=== PATIENT | female | born 1940 | race Caucasian/White ===

== ENCOUNTER 2018-02-23 11:41 | Observation (INO) | payer MEDICARE ==
[2018-02-23 13:04] LABS: Troponin I Less than 0.010 ng/mL (< 0.028)
[2018-02-23] MEDS ORDERED: Acetaminophen 325 MG TAB PO PRN ×2 (13:50→13:56)
[2018-02-23 13:53] VITALS: BMI 27.1
[2018-02-23] MEDS ORDERED: Mag-Al 1200 mg/1200 mg/30 ML UDCUP PO PRN (13:56)
[2018-02-23] MEDS ORDERED: Sodium Chloride 0.65% Nasal 44 ML BOT EA NARE PRN (13:56)
[2018-02-23] MEDS ORDERED: Ondansetron ODT 4 MG TAB PO PRN (13:56)
[2018-02-23] MEDS ORDERED: Milk Of Magnesia 30 ML UDCUP PO PRN (13:56)
[2018-02-23] MEDS ORDERED: Zolpidem Tartrate 5 MG TAB PO PRN (13:56)
[2018-02-23] MEDS ORDERED: hydrALAZINE 20 MG/ML VIAL SLOW IVP PRN (13:56)
[2018-02-23] MEDS ORDERED: Diabetic Tussin 200 MG/10 ML UDCUP PO PRN (13:56)
[2018-02-23] MEDS ORDERED: Ondansetron HCl/PF 4 MG/2 ML Vial IVP PRN (13:56)
[2018-02-23] MEDS ORDERED: Eucerin (Mineral Oil/Petrolatum,White) 30 gm Jar TOP PRN (13:56)
[2018-02-23] MEDS ORDERED: HYDROcodone/Acetaminophen 5/325 mg Tablet PO PRN (13:56)
[2018-02-23] MEDS ORDERED: Loratadine 10 MG TAB PO PRN (13:56)
[2018-02-23] MEDS ORDERED: Artificial Tears 18 DROP/0.9 ML EA EYE PRN (13:56)
[2018-02-23] MEDS ORDERED: Chloraseptic Spray 180 ml Bottle PO PRN (13:56)
[2018-02-23] MEDS ORDERED: Loperamide HCl 2 MG CAP PO PRN (13:56)
[2018-02-23] MEDS ORDERED: Nitroglycerin 0.4 MG TAB (25 Tab Bottle) PO PRN (13:56)
[2018-02-23] MEDS ORDERED: Senokot 8.6 MG TAB PO PRN (13:56)
[2018-02-23] MEDS ORDERED: Albuterol Sulfate 2.5 mg/3 ml Neb NEB PRN (13:58)
[2018-02-23] MEDS ORDERED: Ketorolac Tromethamine 30 MG/ML VIAL IVP PRN (13:58)
[2018-02-23] MEDS ORDERED: Aspirin 325 MG TAB PO SCH (14:00)
--- NOTE | 2018-02-23 14:17 | HP ---
PRIMARY CARE PHYSICIAN: Dr. Jayme Price. REASON FOR ADMISSION: Transfer from [facility] for rule out acute coronary syndrome. HISTORY OF PRESENT ILLNESS: A 77-year-old female, who has underlying history of gastroesophageal ref lux disease and mild intermittent asthma, who went to [facility] Room for evaluati on of chest pain. The patient reports that chest pain started last night, which was left-sided in location, radiated to underarm on the left side. She describes pressure-like and fullness, tightness in nature, 6/10 in i ntensity. The patient's pain was constant. It was not intermittent. There was no specific aggravat ing or relieving factor. She did not have any associated fever, diaphoresis, nausea, vomiting, or sh ortness of breath. She did not have any associated cough or upper respiratory symptoms. She denies any vomiting. There was no relation of chest pain with food, respiration, or activity. Patient's pa in was persistent entire night and this morning, and that is why she decided to go to local emergency room where she had a negative troponin, negative D-dimer, normal blood count. EKG was also unremark able. Chest x-ray reported as mild patchy interstitial opacity. She did not have any upper respirat ory or lower respiratory symptoms. She had negative cardiac enzymes. She was sent to ER in our hospital for further evaluation. Patient reports that she had last stress test done in 2013, which was normal. PAST MEDICAL HISTORY: Mild persistent asthma, gastroesophageal reflux disease, history of costochond ritis. PAST SURGICAL HISTORY: Appendicectomy, total abdominal hysterectomy, partial colon resection for col on abscess, cholecystectomy, and oophorectomy. PAST PSYCHIATRIC HISTORY: Reviewed and negative. ALLERGIES: No known drug allergy. CURRENT HOME MEDICATIONS: Advair inhalation 2 times daily, Zantac 150 mg twice daily, Zanaflex 2 mg as needed, magnesium one tablet 3 times daily. ALLERGIES: No known drug allergy. SOCIAL HISTORY: Patient lives by herself. No history of tobacco, alcohol, or illicit drug abuse. FAMILY HISTORY: Mother had heart disease. Brother had stroke. REVIEW OF SYSTEMS: The following complete review of systems was negative, unless otherwise mentioned in the HPI or below: Constitutional: Weight loss or gain, ability to conduct usual activities. Sk in: Rash, itching. Eyes: Double vision, pain. ENT/Mouth: Nose bleeding, neck stiffness, pain, te nderness. Cardiovascular: Palpitations, dyspnea on exertion, orthopnea. Respiratory: Shortness of breath, wheezing, cough, hemoptysis, fever, or night sweats. Gastrointestinal: Poor appetite, abdo trevin pain, heartburn, nausea, vomiting, constipation, or diarrhea. Genitourinary: Urgency, frequen cy, dysuria, nocturia. Musculoskeletal: Pain, swelling. Neurologic/Psychiatric: Anxiety, depressi on. Allergy/Immunologic: Skin rash, bleeding tendency. Please see my HPI for pertinent positive an d negative. All other review of systems reviewed and negative except as mentioned in the HPI. EMERGENCY ROOM COURSE: Patient is given aspirin, nitroglycerin sublingual, and nitro patch that did not significantly improve her pain. PHYSICAL EXAMINATION: VITAL SIGNS: On arrival, blood pressure 140/68, pulse 69, respiratory rate 16, temperature 98.8, sat uration 94% on room air, weight 65.7 kilograms. GENERAL: The patient is currently alert, awake, in no obvious acute distress. HEENT: Normocephalic, atraumatic. Eyes: Pupils round, reactive to light. Extraocular muscle intac t. ENT: Oropharynx within normal limits. Moist mucous membranes. No oral lesion, no pharyngeal er ythema, no exudate. NECK: Supple, no JVD, no thyromegaly, no carotid bruit, no jugular venous distention. LUNGS: Clear to auscultation without any rhonchi or rales. CARDIAC: S1 and S2 regular. No murmur, no gallop, no rub. ABDOMEN: Soft, bowel sounds present, nontender, nondistended. No organomegaly, no mass, no suprapub ic tenderness. BACK EXAMINATION: Unremarkable, no CVA tenderness. EXTREMITIES: Upper extremities, passive movement of all joints are normal. Lower extremities, no ed judith. Good peripheral pulsation, no calf tenderness. SKIN: No skin rash. HEMATOLOGICAL SYSTEM: No lymphadenopathy. PSYCHIATRIC: Normal affect. NEUROLOGIC: Nonfocal examination. SIGNIFICANT LABORATORY DATA: EKG showing normal sinus rhythm, nonspecific ST-T changes. Chest x-ray reported as mild patchy and interstitial opacity. CBC: WBC 5.7, hemoglobin 13.4, platelets 234. D -dimer 0.37. BMP: Sodium 141, potassium 4.2, chloride 107, carbon dioxide 23, anion gap 15, BUN 15, creatinine 0.72, glucose 102, calcium 9.7. LFT: AST 17, ALT 16, alkaline phosphatase 50, albumin 4 .1, lipase 13. Cardiac enzymes negative x2. CK 53. ASSESSMENT AND PLAN: 1. Chest pain. Patient's chest pain is left-sided. Her description of chest pain is most likely no nanginal and noncardiac. Her EKG showing nonspecific ST-T changes. Cardiac enzymes negative. Based on risk factor profile, patient has [id number] coronary artery disease possibility. The patie nt will need further evaluation with stress testing to rule out underlying ischemia. We will check l ipid profile tomorrow for risk stratification. Her D-dimer is negative, and the patient's descriptio n is also not consistent with thromboembolic disorder and we have excluded that possibility. Most li kalpesh, her pain can be explained by costochondritis. In that case, she will need Toradol on a p.r.n. basis, which we will give her while in hospital. We will also continue with Pepcid 20 mg p.o. b.i.d. , but her description is not consistent with acid reflux as well. Her chest x-ray showing patchy and interstitial opacity, but clinical history is not consistent with the finding and that is why we myron l repeat chest x-ray PA and lateral tomorrow morning. 2. Asthma, mild, persistent. Patient will continue Advair inhalation twice daily and Ventolin nebul ization p.r.n. basis. 3. Gastroesophageal reflux disease. We will continue Pepcid 20 mg p.o. b.i.d. 4. Deep venous thrombosis prophylaxis not needed, because we are expecting discharge in 24 hours. 5. Gastrointestinal prophylaxis, Pepcid 20 mg p.o. b.i.d. 6. Code status: The patient is FULL CODE. Patient does not have any surrogate decision maker. Disposition plan based on stress test result, likely within 24 hours. Plan of care discussed with sarita e patient in detail.
[2018-02-23] MEDS: tiZANidine HCl 4 MG TAB PO PRN (15:02)
[2018-02-23 16:04] LABS: Troponin I Less than 0.010 ng/mL (< 0.028)
[2018-02-23] MEDS ORDERED: Magnesium Oxide 400 MG TAB PO SCH (18:15)
[2018-02-23 19:27] LABS: Troponin I 0.011 ng/mL (< 0.028)
[2018-02-23] MEDS: Mometasone/Formoterol 120 PUFF INHALER INH SCH (19:42)
[2018-02-23] MEDS: Famotidine 20 MG TAB PO SCH (19:52)
[2018-02-24 04:54] LABS: Cardiac Risk 4.9 (Less than 4.5)
[2018-02-24] MEDS: Mometasone/Formoterol 120 PUFF INHALER INH SCH (06:52)
[2018-02-24] MEDS ORDERED: Aspirin 325 MG TAB PO SCH (09:00)
[2018-02-24] MEDS: Famotidine 20 MG TAB PO SCH (11:59)
[2018-02-24] MEDS: Magnesium Oxide 400 MG TAB PO SCH ×2 (12:00→14:19)
[2018-02-24] MEDS: tiZANidine HCl 4 MG TAB PO PRN (12:05)
[2018-02-24 12:08] VITALS: BP 123/70; TEMP 97.6
--- NOTE | 2018-02-24 12:55 | NM ---
CARDIAC SPECT: HISTORY: A 77-year-old female with chest pain. TECHNIQUE: A myocardial perfusion scan is performed using the single-isotope 1-day protocol with Technetium 99m sestamibi. Ten mCi were injected intravenously for the rest exam followed by 29 mCi for the stress s tudy. Exercise stress was monitored and interpreted by Dr. Titus. FINDINGS: There is homogeneous tracer distribution in the myocardial segments on stress and rest images without fixed or reversible defects. GATED SPECT LVEF: 81%. WALL MOTION EXAM: Normal. IMPRESSION: Normal myocardial perfusion scan. POS: [facility]
--- NOTE | 2018-02-24 19:01 | DIS ---
DATE OF ADMISSION: 02/23/2018 DATE OF DISCHARGE: 02/24/2018 PRIMARY CARE PHYSICIAN: Dr. Jayme Price. DISCHARGE DISPOSITION: Home. PRIMARY DISCHARGE DIAGNOSES: 1. Chest pain, ruled out acute coronary syndrome. 2. Dyslipidemia. SECONDARY DISCHARGE DIAGNOSES: Chronic kidney disease stage 2, gastroesophageal reflux disease, mild intermittent asthma. PRIMARY PROCEDURE/OPERATION: None. RADIOLOGICAL INVESTIGATION: Stress test negative. SIGNIFICANT LABORATORY: Triglyceride of 206, LDL 138. Cardiac enzymes negative x3. DISCHARGE MEDICATIONS: Ecotrin 81 mg p.o. daily, Lipitor 10 mg p.o. at bedtime, Advair inhalation b. i.d., magnesium 200 mg p.o. t.i.d., Zanaflex 2 mg t.i.d. p.r.n., Zantac 150 mg p.o. b.i.d. CONTRAINDICATIONS: None. CODE STATUS: FULL CODE. INPATIENT CONSULTANTS: None. ALLERGIES: No known drug allergy. DISCHARGE PLAN: Post hospital, the patient will follow up with primary care physician in 1 week. HOSPITAL COURSE: A 77-year-old female who was admitted by me for chest pain. Please see my HPI for further details. The patient's chest pain description was predominantly consistent with costochondri tis. Based on her request, we did a stress test and serial cardiac enzymes, all workup came back neg ative. The patient has elevated LDL and that is why we are starting Lipitor on her. The patient was given h ealthy lifestyle measure discussion. The patient is seen and examined at bedside today. Plan of car e discussed with the family member. Currently, patient's vital signs stable. Her examination is com pletely normal. All new medication prescriptions sent to her pharmacy. The patient is medically sta ble for discharge today.
--- NOTE | 2018-02-28 11:46 | EKG ---
Test Reason : Blood Pressure : / mmHG Vent. Rate : 066 BPM Atrial Rate : 066 BPM P-R Int : 152 ms QRS Dur : 078 ms QT Int : 422 ms P-R-T Axes : 057 015 041 degrees QTc Int : 442 ms Normal sinus rhythm Nonspecific ST and T wave abnormality Abnormal ECG Confirmed by WYATT MURPHY, WENDY ([id number]), editor in chief newspaper NANY MILLER ([id number]) on 02/28/2018 11:46:26 AM Referred By: Confirmed By:WENDY SCHNEIDER MD
== END 2018-02-24 15:57 | disposition home or self-care (01) ==
LOC: ERS 11:41 → 2SW 12:57
PROVIDERS: ADMIT Internal Medicine; ATTEND Internal Medicine
DX: R07.89 Other chest pain (principal); K21.9 Gastro-esophageal reflux disease without esophagitis; J45.30 Mild persistent asthma, uncomplicated; E78.5 Hyperlipidemia, unspecified; N18.2 Chronic kidney disease, stage 2 (mild); Z79.51 Long term (current) use of inhaled steroids; Z79.899 Other long term (current) drug therapy; Z88.8 Allergy status to other drugs, medicaments and biological substances
CPT/HCPCS: 78452; 80061; 84484; 93005; 93017; 94640 ×2; 99285; A9500; G0378; 36415

== ENCOUNTER 2018-02-28 01:08 | Inpatient (IN) | payer MEDICARE ==
[2018-02-28 01:41] LABS: #Basophils 0.1 thou/uL (0.0-0.2); #Eosinphils 0.3 thou/uL (0.0-0.7); #Lymphocytes 1.9 thou/uL (1.20-3.40); #Monocytes 0.4 thou/uL (0.11-0.59); #Neutrophils 2.3 thou/uL (1.40-6.50); %Basophils 1.7 % (0.0-1.0); %Eosinophils 5.9 % (0.0-10.0); %Lymphocytes 37.7 % (21.0-51.0); %Monocytes 8.3 % (0.0-10.0); %Neutrophils 46.5 % (42.0-75.0); Hemoglobin 12.6 g/dL (12.0-16.0); Mean Corpuscular HGB CONC 34.7 g/dL (32.0-36.0); Mean Corpuscular Hemoglobin 32.3 pg (27.0-31.0); Mean Platelet Volume 7.4 fL (7.4-10.4); Platelet Count 229 thou/uL (130-400); RBC Distribution Width 11.7 % (11.5-14.5); Red Blood Cell (RBC) Count 3.91 mill/uL (4.20-5.40)
[2018-02-28] MEDS ORDERED: Fentanyl 100 MCG/2 ML VIAL ONE (01:53)
[2018-02-28 02:06] LABS: CKMB 1.3 ng/mL (0-6.6); Troponin I Less than 0.010 ng/mL (< 0.028)
[2018-02-28 02:09] LABS: ALT (SGPT) 11 U/L (8-55); AST (SGOT) 13 U/L (5-34); Albumin 3.9 g/dL (3.4-4.8); Alkaline Phosphatase 46 U/L (40-150); Anion Gap 14 mmol/L (10-20); BUN (Urea Nitrogen) 18 mg/dL (9.8-20.1); Bilirubin, Total 0.4 mg/dL (0.2-1.2); CK (CPK) 50 U/L (29-168); Calc. Creatinine Clearance 0 mL/min (70-130); Calcium 9.4 mg/dL (7.8-10.44); Carbon Dioxide 22 mmol/L (23-31); Chloride 108 mmol/L (98-107); Estimated GFR-MDRD 80; Globulin 2.5 g/dL (2.4-3.5); Glucose 98 mg/dL (83-110); Lipase 15 U/L (8-78); Potassium 3.9 mmol/L (3.5-5.1); Protein, Total 6.4 g/dL (6.0-8.3); Sodium 140 mmol/L (136-145)
[2018-02-28] MEDS ORDERED: Acetaminophen 500 MG TAB ONE (02:58)
[2018-02-28] MEDS ORDERED: Acetaminophen 325 MG TAB PO PRN ×2 (03:51→09:17)
[2018-02-28 03:59] VITALS: BMI 26.9
[2018-02-28 05:29] LABS: Cardiac Risk 4.5 (Less than 4.5)
[2018-02-28 05:31] LABS: Troponin I Less than 0.010 ng/mL (< 0.028)
[2018-02-28 07:56] LABS: Troponin I 0.011 ng/mL (< 0.028)
[2018-02-28] MEDS ORDERED: Aspirin 325 MG TAB PO SCH (08:00)
--- NOTE | 2018-02-28 08:50 | CT ---
PRELIMINARY REPORT/[facility]/EMERGENTY AFTER-HOURS PROCEDURE CT Angiography Chest With Intravenous Contrast CLINICAL HISTORY: Pain; Chest pain; Patient HX: Patient presents for evaluation of chest pain TECHNIQUE: Axial computed tomographic angiography images of the chest with intravenous contrast using pulmonary embolism protocol. MIP reconstructed images were created and reviewed. COMPARISON: No relevant prior studies available. FINDINGS: Artifacts: Motion artifact degrades image quality and limits evaluation of subsegmental vessels. Pulmonary arteries: There is good opacification of the pulmonary arterial tree. No pulmonary arterial filling defects. Aorta: No acute findings. No thoracic aortic aneurysm. Other arteries: 14 mm splenic artery aneurysm. Lungs: Bilateral subsegmental atelectasis/pleural parenchymal scar. No mass. Pleural space: Unremarkable. No significant effusion. No pneumothorax. Heart: Unremarkable. No cardiomegaly. No significant pericardial effusion. No evidence of RV dysfunct ion. Thyroid: Heterogeneous nodularity of the thyroid diffusely. Bones/joints: Multilevel spondylosis. No acute fracture. No dislocation. Soft tissues: Unremarkable. Lymph nodes: Unremarkable. No enlarged lymph nodes. Liver and spleen: The liver and spleen demonstrate punctate calcifications, consistent with remote gr anulomatous organism exposure. Gallbladder and bile ducts: There has been a cholecystectomy. Kidneys and ureters: Punctate left renal calculus versus vascular calcification. Stomach and bowel: Colonic diverticula without adjacent inflammatory change. IMPRESSION: 1. Motion artifact degrades image quality and limits evaluation of subsegmental vessels. No central o r segmental pulmonary embolic disease. 2. Other findings as above. We are pleased to participate in the care of your patient. Thank you for allowing us to participate in the care of your patient. Dictated and Authenticated by: Dia Nayak MD 02/28/2018 2:49 AM Central Time ([place] & [place]) FINAL REPORT: CT ANGIOGRAM OF THE CHEST: History: Evaluate for pulmonary embolism. Chest pain. Comparison: None. Technique: CT angiogram of the chest performed in the axial plane. 3D reformatted images are submitte d for interpretation. FINDINGS: The report is in agreement with the preliminary report by [facility]. No evidence of pulmonary artery emboli sm to the segmental arteries. Aneurysm was the splenic artery. Left renal parapelvic cysts are suspec carrillo. POS: [facility]
[2018-02-28] MEDS ORDERED: Nitroglycerin 0.4 MG TAB (25 Tab Bottle) PO PRN (09:17)
[2018-02-28] MEDS ORDERED: Bisacodyl 5 MG TAB PO PRN (09:17)
--- NOTE | 2018-02-28 09:22 | RAD ---
CHEST 1 VIEW: COMPARISON: 02/23/18. HISTORY: Chest pain. FINDINGS: Normal cardiac silhouette. The pulmonary vessels and hilum are normal. Costophrenic angles are kelsea r. No consolidation or mass. No pneumothorax or osseous abnormalities. IMPRESSION: No acute cardiopulmonary process. POS: [facility]
[2018-02-28] MEDS ORDERED: Mometasone/Formoterol 120 PUFF INHALER INH SCH (10:30)
--- NOTE | 2018-02-28 11:35 | HP ---
PRIMARY CARE PHYSICIAN: Kishan Price D.O. CHIEF COMPLAINT: Chest pain. HISTORY OF PRESENT ILLNESS: Ms. Castro is a pleasant 77-year-old lady who was seen at [facility] on 02/28/2018. She was hospitalized here from 02/23/2018 to 02/24/2018 for chest pain. She had a nuclear stress test at that time. Acute coronary syndrome was ruled out. She was diagnosed with probable costochondritis. She was also started on Lipitor for dyslipidemia. She reports that following discharge, she has had on and off left-sided chest discomfort, no known ag gravating or relieving factors, radiating to the area under her left arm, 2 out of 10 currently, not accompanied by shortness of breath, nausea, vomiting, fever, chills or cough. She reports that chest pain was less over 2 days, then restarted yesterday afternoon. Her son by the bedside reports that she was in intense pain at that time. REVIEW OF SYSTEMS: All other systems reviewed and found to be negative. PAST MEDICAL HISTORY: Mild persistent asthma, gastroesophageal reflux disease and costochondritis. PAST SURGICAL HISTORY: Appendectomy, total abdominal hysterectomy, partial colon resection for colon abscess, cholecystectomy, and oophorectomy. ALLERGIES: No known drug allergies. CURRENT MEDICATIONS: Ecotrin 81 mg daily, Lipitor 10 mg at bedtime, Advair inhalation 2 times a day, magnesium 200 mg 3 times a day, Zanaflex 2 mg 3 times a day as needed, Zantac 150 mg 2 times a day. CODE STATUS: She is FULL CODE. FAMILY HISTORY: Heart disease in her mother and stroke in her brother. SOCIAL HISTORY: No history of tobacco use, alcohol use or recreational drug use. PHYSICAL EXAMINATION: GENERAL: On examination, Ms. Castro is awake and alert, not in acute distress. VITAL SIGNS: Blood pressure is 130/65, pulse 63, respiratory rate 16, and she is saturating 97% on r oom air. She is afebrile. EYES: No scleral icterus. No conjunctival pallor. ENT: Moist mucosal membranes, no oropharyngeal erythema or exudates. NECK: Supple, nontender, trachea is midline. RESPIRATORY: Accessory muscles of breathing are not active. Chest wall movements are symmetric bila terally. LUNGS: Clear to auscultation without wheeze, rhonchi or crepitations. CARDIOVASCULAR: S1 and S2 are heard, regular. Peripheral pulses palpable. No carotid bruit, no per icardial rub. ABDOMEN: Soft, nontender, bowel sounds are heard, no hepatomegaly, no splenomegaly. NEUROLOGIC: Cranial nerves II-XII intact. Deep tendon reflexes are 2+. MUSCULOSKELETAL: Power is 5/5 in all four extremities. She has reproducible tenderness over the lef t chest wall. LYMPHATIC: No cervical lymphadenopathy. PSYCHIATRIC: Normal mood, normal affect, patient is oriented to person, place, and time. IMAGING DATA AND LABORATORY DATA: Ms. Castro's labs and investigations were reviewed. I reviewed he r electrocardiogram, which shows normal sinus rhythm, no ST changes to suggest an acute coronary synd pennie. I also reviewed her chest x-ray, which does not show any pulmonary infiltrates. She also had a CT angiogram of the chest, which did not show any central or segmental pulmonary embolic disease. She has a 14-mm splenic artery aneurysm. She has an unremarkable CBC, normal sodium, normal potassiu m, slightly decreased carbon dioxide of 22, normal creatinine, normal liver profile and troponin I th at is negative x3. BNP is normal. Triglycerides are elevated at 218, cholesterol at 209. LDL is 11 9 and HDL is 46. Lipase is normal. ASSESSMENT AND PLAN: Ms. Castro is a pleasant 77-year-old lady who was seen at [facility] on 02/28/2018. Her problem list includes: 1. Chest pain: Likely musculoskeletal, given reproducible tenderness as well as recent negative str ess test. We will start Toradol p.r.n. Cardiology Service has been consulted by emergency room phys mckenna. 2. Asthma: Stable. 3. Gastroesophageal reflux disease: Stable, we will continue Zantac. 4. Costochondritis: Likely recurrent. Many thanks for allowing me to participate in your patient's care. Please feel free to contact me wi th any questions or concerns. LEVEL OF RISK: High. LEVEL OF COMPLEXITY: High.
[2018-02-28] MEDS: Ketorolac Tromethamine 30 MG/ML VIAL IVP SCH ×2 (12:06→17:59)
[2018-02-28] MEDS ORDERED: ISOVUE-370 76%-LOCM 1 ML ONE (12:46)
[2018-02-28] MEDS: Magnesium Oxide 250 MG TAB PO SCH ×2 (15:21→20:08)
--- NOTE | 2018-02-28 15:46 | CON ---
DATE OF CONSULT: 02/28/18 HISTORY OF PRESENT: The patient is a 77-year-old woman who presents for evaluation of left-sided marti st discomfort. The patient states approximately four years ago, she underwent a cardiac evaluation f or chest pain. She underwent a stress test which was unremarkable. The patient was doing well until Friday. The patient developed left-sided chest discomfort that radiated into her left arm. The pat ient received nitroglycerin tablet with improvement in her pain. The patient was admitted. She unde rwent a Cardiolite stress test which revealed normal left ventricular systolic function with estimate d ejection fraction of 81% and no evidence of ischemia. The patient's chest pain eventually resolve d. She went home and developed recurrent chest discomfort on the day of admission, the pain was once again left-sided. It has been persistent. The chest discomfort continues to radiate in the left ar m. The chest pain seemed to improve with nitroglycerin. PAST MEDICAL HISTORY: 1. Asthma. 2. GE reflux. 3. History of chronic rib pain. 4. Irritable bowel syndrome. PAST SURGICAL HISTORY: Appendectomy, tonsillectomy, hysterectomy, oophorectomy, and colon surgery. SOCIAL HISTORY: She is a nonsmoker. FAMILY HISTORY: Positive family history of heart disease. Mother had a myocardial infarction. ALLERGIES: She is allergic to FENTANYL. MEDICATIONS: Aspirin 325 daily, Zantac 150 b.i.d., magnesium 200 t.i.d. REVIEW OF SYSTEMS: Notable for chronic urinary tract infections. REVIEW OF SYSTEMS: Notable for chronic urinary tract infection. No history of easy bruising, bright red blood per rectum. Ten-point system otherwise is unremarkable. PHYSICAL EXAMINATION: GENERAL: Thin woman in no acute distress. VITAL SIGNS: Blood pressure 130/65. NECK: No jugular distention, no carotid bruits. LUNGS: Clear to auscultation. HEART: Regular rate and rhythm, normal S1, S2, no murmurs. ABDOMEN: Nondistended. EXTREMITIES: Showed no edema. SKIN: Warm and dry. NEUROLOGIC: Nonfocal. VASCULAR: Radial pulses are 2+. LABORATORY DATA: White blood count 5.0, hemoglobin 12.6, hematocrit 36.3, platelets 229. Sodium 140 , potassium 3.9, chloride 108, bicarbonate 22, BUN 18, creatinine is 0.71, troponin less than 0.01. IMPRESSION: 1. Recurrent chest pain. 2. Asthma. 3. Gastroesophageal reflux. This patient presents with persistent recurrent chest discomfort. ECG is unremarkable. Cardiac enzy mes reveal no evidence of myocardial infarction. I discussed the options with the patient who prefer s a definitive diagnosis. I will therefore proceed with cardiac catheterization during this hospital ization. We will try the patient on Ranexa. We will follow the patient with you through her [facility]
[2018-02-28] MEDS: Mometasone/Formoterol 120 PUFF INHALER INH SCH (18:20)
[2018-02-28] MEDS: Famotidine 20 MG TAB PO SCH (20:08)
[2018-02-28] MEDS ORDERED: tiZANidine HCl 4 MG TAB PO PRN (21:00)
[2018-02-28] MEDS ORDERED: CRANBERRY PO SCH (21:00)
[2018-03-01] MEDS: Ketorolac Tromethamine 30 MG/ML VIAL IVP SCH ×5 (00:30→23:56)
[2018-03-01 04:31] LABS: #Basophils 0.1 thou/uL (0.0-0.2); #Eosinphils 0.3 thou/uL (0.0-0.7); #Lymphocytes 2.2 thou/uL (1.20-3.40); #Monocytes 0.4 thou/uL (0.11-0.59); %Basophils 1.3 % (0.0-1.0); %Eosinophils 5.6 % (0.0-10.0); %Lymphocytes 44.7 % (21.0-51.0); %Monocytes 8.3 % (0.0-10.0); %Neutrophils 40.2 % (42.0-75.0); Hemoglobin 12.2 g/dL (12.0-16.0); Mean Corpuscular HGB CONC 34.5 g/dL (32.0-36.0); Mean Corpuscular Volume 92.7 fL (78.0-98.0); Mean Platelet Volume 7.7 fL (7.4-10.4); Platelet Count 214 thou/uL (130-400); RBC Distribution Width 11.7 % (11.5-14.5); Red Blood Cell (RBC) Count 3.79 mill/uL (4.20-5.40); White Blood Cell (WBC) Count 4.9 thou/uL (4.8-10.8)
[2018-03-01 04:48] LABS: Anion Gap 10 mmol/L (10-20); BUN (Urea Nitrogen) 17 mg/dL (9.8-20.1); Calc. Creatinine Clearance 66 mL/min (70-130); Calcium 8.9 mg/dL (7.8-10.44); Carbon Dioxide 24 mmol/L (23-31); Chloride 106 mmol/L (98-107); Estimated GFR-MDRD 72; Glucose 93 mg/dL (83-110); Potassium 4.1 mmol/L (3.5-5.1); Sodium 136 mmol/L (136-145)
[2018-03-01] MEDS: Mometasone/Formoterol 120 PUFF INHALER INH SCH ×2 (07:22→18:38)
[2018-03-01] MEDS ORDERED: Enoxaparin Sodium 40 MG/0.4 ML SYRINGE SC SCH (09:00)
[2018-03-01] MEDS: Famotidine 20 MG TAB PO SCH ×2 (09:50→20:38)
[2018-03-01] MEDS: Magnesium Oxide 250 MG TAB PO SCH ×3 (09:51→20:38)
[2018-03-01] MEDS: Aspirin 325 mg Enteric Coated Tablet PO SCH (09:55)
[2018-03-01] MEDS: traMADol HCl 50 MG TAB PO PRN ×2 (09:55→22:33)
--- NOTE | 2018-03-01 14:01 | PRG ---
DATE OF SERVICE: 03/01/2018 SUBJECTIVE: The patient seen and examined at bedside. She has some chest discomfort in the left amador e of her upper and mid chest. No nausea, no vomiting, no clammy skin. No shortness of breath with t his. OBJECTIVE: VITAL SIGNS: Blood pressure is 129/70, pulse is 58, respiratory rate is 20, temperature 97.8 and O2 saturations 100% on room air. HEENT: Atraumatic and normocephalic. Eyes are PERRLA. Conjunctivae pinkish. Oral mucosa is moist. NECK: Supple, no lymphadenopathy. Thyroid is not palpable. LUNGS: Clear. HEART: S1, S2 normal, no S3, no S4, no any murmur. ABDOMEN: Soft, nontender, nondistended. Bowel sounds are present, no organomegaly. EXTREMITIES: No clubbing, cyanosis or edema. NEUROLOGIC: Intact. LABORATORY DATA: Showed a white count of 4.9, hemoglobin 12.2, hematocrit 35.2, platelet count is 21 4,000. Chemistry is within normal limits. IMPRESSION: Chest pain, which is recurrent, with unremarkable EKG and without any evidence of myocar dial infarction on cardiac enzymes testing. She is scheduled for cardiac catheterization tomorrow mo rning by Dr. Tio Titus.
[2018-03-01] MEDS: Fluticasone Propionate Nasal Spray 16 gm Bottle NASAL SCH (14:37)
[2018-03-01] MEDS ORDERED: Communication Order-Pharmacy FS SCH (15:15)
[2018-03-01] MEDS ORDERED: Sodium Chloride 0.9% 10 ML ONE ×2 (20:29→23:42)
[2018-03-02] MEDS ORDERED: Sodium Chloride 0.9% 10 ML ONE (05:56)
[2018-03-02] MEDS: Fluticasone Propionate Nasal Spray 16 gm Bottle NASAL SCH (06:11)
[2018-03-02] MEDS: Famotidine 20 MG TAB PO SCH (06:12)
[2018-03-02] MEDS: Ketorolac Tromethamine 30 MG/ML VIAL IVP SCH ×2 (06:12→12:00)
[2018-03-02] MEDS: Magnesium Oxide 250 MG TAB PO SCH ×2 (06:12→17:50)
[2018-03-02] MEDS: Aspirin 325 mg Enteric Coated Tablet PO SCH (06:12)
[2018-03-02] MEDS: Mometasone/Formoterol 120 PUFF INHALER INH SCH (06:28)
[2018-03-02] MEDS ORDERED: Lidocaine 1% (PF) 30 ML VIAL ONE (07:06)
[2018-03-02] MEDS ORDERED: Midazolam HCl 2 mg/2 ml Vial ONE (08:07)
[2018-03-02] MEDS ORDERED: traMADol HCl 50 MG TAB PO PRN (08:33)
[2018-03-02] MEDS ORDERED: Acetaminophen/Codeine 30-300mg Tablet PO PRN ×2 (08:33)
[2018-03-02] MEDS ORDERED: Nitroglycerin 0.4 MG TAB (25 Tab Bottle) SL PRN (08:33)
[2018-03-02] MEDS ORDERED: Sodium Chloride 0.9% 200 ML IV SCH (08:45)
[2018-03-02] MEDS ORDERED: Iopamidol 370 76% 100 ML VIAL ONE (11:06)
[2018-03-02 14:40] VITALS: BP 123/64
[2018-03-02 14:42] VITALS: TEMP 98
== END 2018-03-02 17:53 | disposition home or self-care (01) | DRG 287 ==
LOC: ERS 01:08 → OBSVTOIN 02:56 → 2SW 02:56 → 2NO 21:32
PROVIDERS: ADMIT Hospitalist; ATTEND Hospitalist
PROC: 4A023N7 Measurement of Cardiac Sampling and Pressure, Left Heart, Percutaneous Approach (ICD-10-PCS; principal; 2018-03-02)
PROC: B211YZZ Fluoroscopy of Multiple Coronary Arteries using Other Contrast (ICD-10-PCS; 2018-03-02)
PROC: B215YZZ Fluoroscopy of Left Heart using Other Contrast (ICD-10-PCS; 2018-03-02)
DX: R07.89 Other chest pain (principal); J45.909 Unspecified asthma, uncomplicated; K21.9 Gastro-esophageal reflux disease without esophagitis; Z82.49 Family history of ischemic heart disease and other diseases of the circulatory system; E78.5 Hyperlipidemia, unspecified; M94.0 Chondrocostal junction syndrome [Tietze]
CPT/HCPCS: 36415; 71045; 71275; 80048; 80053; 80061; 82553; 83690; 83880; 84484; 85025; 93005; 93458; 96360; 99152; A4216; C1769; J1644; J1650; J1885; J2001; J2250; J3010

== ENCOUNTER 2020-10-01 07:03 | Observation (INO) | payer MEDICARE ==
[2020-10-01] MEDS ORDERED: Aspirin Chewable 81 MG TAB ONE (07:37)
--- NOTE | 2020-10-01 07:40 | RAD ---
XR Chest 1 View Portable HISTORY: Ataxia, dizziness COMPARISON: 08/28/2020 FINDINGS: The heart size is normal. The aorta is tortuous The lungs are well expanded without focal a reas of consolidation, pneumothorax or pleural effusions. IMPRESSION: No radiographic evidence of acute cardiopulmonary process.
[2020-10-01 08:15] LABS: Acetaminophen Less than 6.0 mcg/mL (10.0-30.0); Alcohol Less than 10 mg/dL (Less than 10); Salicylate Less than 8.0 mg/dL (15.0-30.0)
[2020-10-01 09:29] LABS: Bilirubin Negative (Negative); Blood, Urine Negative (Negative); Clarity Clear (Clear); Glucose, Urine (Dipstick) Normal (Negative); Ketone, Urine Negative (Negative); Leukocyte Negative Leu/uL (Negative); Nitrite Negative (Negative); Protein, Urine (Dipstick) Negative (Neg-Trace); Urobilinogen Normal mg/dL (Less than 2); pH, Urine 6.5 (5.0-9.0)
[2020-10-01] MEDS ORDERED: Acetaminophen 325 MG TAB PO PRN (09:29)
[2020-10-01 09:41] LABS: Amphetamine Not Detected (NotDetected); Barbiturates Screen Not Detected (NotDetected); Benzodiazepine Screen Not Detected (NotDetected); Cocaine Metabolite Screen Not Detected (NotDetected); Medtox Control Line Valid? VALID (VALID); Medtox Reader # READER 4; Methadone Not Detected (NotDetected); Methamphetamine Not Detected (NotDetected); Opiate Screen Not Detected (NotDetected); Oxycodone Screen Not Detected (NotDetected); Phencyclidine (PCP) Not Detected (NotDetected); THC/Cannabinoid Screen Not Detected (NotDetected); Tricyclic Screen Not Detected (NotDetected)
--- NOTE | 2020-10-01 09:43 | PDOC.HHP ---
Hospitalist HPI Dizziness History of Present Illness: Ms. Castro is a 80-year-old female with past medical history of mild persistent asthma, hyperlipidemia, GERD who presents as a transfer from [facility] emergency room for dizziness. Of note patient had recent concussion approximately 3 months ago where she hit her head on the bathtub. She reports that approximately 1 week ago she lightly hit her head in the same spot when getting out of a car. She reports that for the past 2 days she has had severe dizziness which she describes as more of a lightheadedness. She feels as though she is unable to walk or move during the spells and that she has to grab onto the wall. She does not feel that the room is spinning around her. She denies any chest pain, changes in vision, numbness weakness or paresthesias during these events. Her dizziness is made worse by movement. She denies any dizziness at rest. She denies abdominal pain, no melena hematochezia or hematemesis. In emergency room initial vital signs 138/79, 98, 70, 18, 98.5, 98% room air. EKG showed normal sinus rhythm with no ischemic changes. Initial troponin 0.01. H/H 13.4/41.4, WBC 4.6. BUN/CR 19/0.7, sodium 142, potassium 4.1, glucose 107. CT brain was done at [facility] which on my review does not show any evidence of acute bleed. Final radiologist review pending. Allergies/Adverse Reactions: Allergy/AdvReac Type Severity Reaction Status Date / Time fentanyl Allergy Verified 02/28/18 04:01 Home Medications: Medication Instructions Recorded Confirmed Type Fluticasone/Salmeterol [Advair 2 inh IH BID 02/23/18 02/28/18 History Diskus 100/50] Magnesium 200 mg PO TID 02/23/18 02/28/18 History Zantac 150 mg PO BID 02/23/18 02/28/18 History tiZANidine HCl [Tizanidine HCl] 2 mg PO TID PRN 02/23/18 02/28/18 History Aspirin [Ecotrin Regular Strength] 325 mg PO DAILY 02/28/18 02/28/18 History Cranberry 1,200 mg PO BID 02/28/18 02/28/18 History Ranolazine [Ranexa] 500 mg PO BID 30 Days tab 03/02/18 Rx Past History: PMHx: Mild persistent asthma Hyperlipidemia GERD Concussion PSHx: Appendectomy Tonsillectomy Colon resection Cholecystectomy Hysterectomy FHx: Denies family history of cardiac disease or cancer Social: Lives at home alone, denies tobacco alcohol or drug use. Hospitalist HPI ROS Constitutional: reports: other. denies: fever, chills, sweats, weakness, malaise Eyes: denies: pain, vision change, conjunctivae inflammation, eyelid in flammation, redness, other ENT: denies: ear pain, ear discharge, nose pain, nose discharge, nose congestion, mouth pain, mouth swelling, throat pain, throat swelling, other Respiratory: denies: cough, dry, shortness of breath, hemoptysis, SOB with excertion, pleuritic pain, sputum, wheezing, other Cardiovascular: reports: light headedness. denies: chest pain, palpitations, orthopnea, paroxysmal noc. dyspnea, edema, other Gastrointestinal: denies: nausea, vomiting, abdominal pain, diarrhea, cons tipation, melena, hematochezia, other Genitourinary: denies: dysuria, frequency, incontinence, hematuria, retention, other Musculoskeletal: denies: neck pain, shoulder pain, arm pain, back pain, hand pain, leg pain, foot pain, other Skin: denies: rash, lesions, rk, bruising, other Neurological: denies: weakness, numbness, incoordination, change in speech, confusion, seizures (Headache, dizziness), other Hospitalist Exam General Appearance: NAD, awake alert Eye: PERRL, anicteric sclera Eye - other findings: Funduscopic exam without papilledema ENT: normocephalic atraumatic, no oropharyngeal lesions, moist mucosa Neck: supple, symmetric, no JVD, no thyromegaly, no lymphadenopathy, no carotid bruit Heart: RRR, no murmur, no gallops, no rubs, normal peripheral pulses Respiratory: CTAB, no wheezes, no rales, no ronchi, normal chest expansion, no tachypnea, normal percussion Gastrointestinal: soft, non-tender, non-distended, normal bowel sounds, no palpable masses, no hepatomegaly, no splenomegaly, no bruit Extremities: no cyanosis, no clubbing, no edema Skin: normal turgor, no lesions, no rashes Neurological: cranial nerve grossly intact, normal sensation to touch, no weakness, no focal deficits, no new deficit Musculoskeletal: normal tone, normal strength, no muscle wasting Psychiatric: normal affect, normal behavior, A&O x 3 Hospitalist Results Lab results: Laboratory Last Values Creatine Kinase 35 U/L (29-168) 10/01/20 07:44 Troponin I 0.010 ng/mL (< 0.028) 10/01/20 07:44 Urine Color Light-Yellow (Yellow) 10/01/20 09:00 Urine Clarity Clear (Clear) 10/01/20 09:00 Urine pH 6.5 (5.0-9.0) 10/01/20 09:00 Ur Specific [place] 1.010 (1.002-1.036) 10/01/20 09:00 Urine Protein Negative mg/dL (Neg-Trace) 10/01/20 09:00 Urine Glucose (UA) Normal mg/dL (Negative) 10/01/20 09:00 Urine Ketones Negative mg/dL (Negative) 10/01/20 09:00 Urine Blood Negative (Negative) 10/01/20 09:00 Urine Nitrite Negative (Negative) 10/01/20 09:00 Urine Bilirubin Negative (Negative) 10/01/20 09:00 Urine Urobilinogen Normal mg/dL (Less than 2) 10/01/20 09:00 Ur Leukocyte Esterase Negative Mathew/uL (Negative) 10/01/20 09:00 Salicylates Less than 8.0 mg/dL (15.0-30.0) L 10/01/20 07:44 Acetaminophen Less than 6.0 mcg/mL (10.0-30.0) L 10/01/20 07:44 Plasma Alcohol Less than 10 mg/dL (Less than 10) 10/01/20 07:44 Hospitalist H&P A/P Plan: 80-year-old male with past medical history of a concussion 3 months ago, mild persistent asthma, GERD presents for 2 days of dizziness/lightheadedness as a transfer from [facility] sent to [facility] for stroke rule out. Dizziness, presyncope Patient describes dizziness versus presyncope for the past 2 days. Reports her dizziness gets worse with moving, and that she needs to grab onto the wall for support. Patient given meclizine at outside hospital which did not improve patient's symptoms. No nystagmus on exam. Tympanic membranes clear. CT brain negative (final read pending). Patient neurologically intact on exam. Will pursue MRI to rule out posterior stroke given persistent dizziness. Plan MRI brain Telemetry monitoring, trend troponin Echocardiogram TSH, magnesium Orthostatic vital signs Headache with postconcussive syndrome Patient endorses headache over the area of her initial concussion 3 months ago. Patient with repeated minor injury to same area. She reports she gently hit her head while getting out of the car. She has noticed a worsening of her headache and initial concussive symptoms since that time. She did not have any changes in vision, or loss of consciousness during that time. She has no other neurologic symptoms aside from the dizziness. Suspect headache likely secondary to postconcussive syndrome, however will pursue stroke/presyncope work-up as above. Patient also reports recent dental work past few days which may also be contributing. Plan Tylenol as needed MRI, plan as above Brain rest, concussive precautions given Recent dental procedure Patient with recent dental procedure last week for crown and bridge repair. Patient reports that her headache symptoms have been slightly worse since that procedure. She was prescribed amoxicillin as an outpatient for 10 days, she is now on day 3. On exam front teeth absent, no erythema or abscess visible. We will continue patient's antibiotics while inpatient once dosage confirmed. Plan Continue outpatient antibiotics Mild persistent asthma History of mild persistent asthma, will continue patient's home Advair inhaler and make albuterol inhalers available as needed. GERD History of GERD. We will continue home pantoprazole. DVT prophylaxisSCDs Full code Case discussed with attending physician, Dr. Beltre.
[2020-10-01 12:35] LABS: Troponin I Less than 0.010 ng/mL (< 0.028)
[2020-10-01] MEDS ORDERED: Albuterol 200 PUFF (6.7GM INHALER) INH PRN (17:14)
[2020-10-01 17:49] VITALS: BMI 11.4
[2020-10-01] MEDS: Mometasone 100 MCG/Formoterol 5 MCG 120 PUFF INHALER INH SCH (21:27)
[2020-10-02] MEDS ORDERED: AMOXicillin 250 MG CAP PO SCH ×2 (01:30→09:00)
[2020-10-02] MEDS ORDERED: Magnesium Oxide 400 MG TAB PO SCH ×2 (01:30→09:00)
[2020-10-02 05:42] LABS: #Eosinphils 0.1 thou/uL (0.0-0.7); #Lymphocytes 1.9 thou/uL (1.20-3.40); #Monocytes 0.4 thou/uL (0.11-0.59); #Neutrophils 2.3 thou/uL (1.40-6.50); %Basophils 0.7 % (0.0-1.0); %Lymphocytes 40.3 % (21.0-51.0); %Monocytes 9.2 % (0.0-10.0); %Neutrophils 47.8 % (42.0-75.0); Hemoglobin 12.2 g/dL (12.0-16.0); Mean Corpuscular HGB CONC 33.1 g/dL (32.0-36.0); Mean Corpuscular Hemoglobin 31.5 pg (27.0-31.0); Mean Corpuscular Volume 95.3 fL (78.0-98.0); Mean Platelet Volume 7.7 fL (7.4-10.4); Platelet Count 268 thou/uL (130-400); RBC Distribution Width 13.6 % (11.5-14.5); Red Blood Cell (RBC) Count 3.86 mill/uL (4.20-5.40); White Blood Cell (WBC) Count 4.8 thou/uL (4.8-10.8)
[2020-10-02 06:03] LABS: Anion Gap 13 mmol/L (10-20); BUN (Urea Nitrogen) 20 mg/dL (9.8-20.1); Calc. Creatinine Clearance 29 mL/min (70-130); Calcium 8.9 mg/dL (7.8-10.44); Carbon Dioxide 23 mmol/L (23-31); Chloride 109 mmol/L (98-107); Glucose 96 mg/dL (83-110); Potassium 4.2 mmol/L (3.5-5.1)
[2020-10-02 06:08] LABS: Sodium 141 mmol/L (136-145)
[2020-10-02] MEDS: Mometasone 100 MCG/Formoterol 5 MCG 120 PUFF INHALER INH SCH (07:19)
--- NOTE | 2020-10-02 08:38 | MRI ---
Exam: Brain MRI without contrast HISTORY: Persistent dizziness. Evaluate for posterior CVA COMPARISON: None FINDINGS: Calvarial marrow signal intensity: Appropriate T1 signal Gradient echo sequence: No hemorrhage Brain parenchyma: No mass, mass effect or midline shift. Brain volume, age-appropriate. Cortical joy-white matter differentiation: Preserved Restricted diffusion: Central arterial flow voids are maintained. Absent restricted diffusion White matter signal intensities: T2, FLAIR white matter hyperintensities due to chronic small vessel ischemic changes Sinuses: Adequate aeration of the paranasal sinuses and mastoid air cells. IMPRESSION: 1. Absent restricted diffusion. No acute infarction 2. Age-appropriate atrophy. 3. Chronic small vessel ischemic changes of the white matter
[2020-10-02] MEDS ORDERED: FLU VACC QS2020-21(65YR UP)/PF 240 MCG/0.7 ML SYRINGE IM ONE (09:00)
[2020-10-02] MEDS ORDERED: Aspirin 81 mg Enteric Coated Tablet PO SCH (09:00)
[2020-10-02 12:08] VITALS: BP 141/64; TEMP 98.6
--- NOTE | 2020-10-02 12:28 | CON ---
NEUROLOGY CONSULTATION DATE OF CONSULTATION: 10/02/2020 REASON FOR CONSULTATION: Dizziness. HISTORY OF PRESENT ILLNESS: Ms. Kim Castro is a 80-year-old female with medical history significant for asthma, hyperlipidemia, GERD, presented as a transfer from [facility] because of acute onset dizziness. Per patient, she has concussion three months ago when she hit her head on the bathtub, and one week ago, she again hit on the same spot when getting out of the car and for the last two days, she has severe dizziness and lightheadedness. Per patient, she is unable to walk because of because of dizziness, but she does not feel as if the room is spinning in front of her eyes. She denies focal numbness, focal paresthesias, nausea, vomiting, headache, chest pain, abdominal pain, recent illness or recent exposure to COVID. She does not have any problem with speech or swallowing. HCT scan at the [facility] did not show any acute intracranial pathology. PAST MEDICAL HISTORY: Mild persistent asthma, hyperlipidemia, GERD, concussion. PAST SURGICAL HISTORY: Appendectomy, tonsillectomy, colon resection, cholecystectomy, and hysterectomy. FAMILY HISTORY: No family history of coronary artery disease. SOCIAL HISTORY: The patient lives alone. Denies smoking, alcohol, illegal drug abuse. REVIEW OF SYSTEMS: All systems reviewed and were negative except the pertinent positives and negatives mentioned in the HPI. Allergies/Adverse Reactions: Allergy/AdvReac Type Severity Reaction Status Date / Time fentanyl Allergy Verified 02/28/18 04:01 Home Medications: Medication Instructions Recorded Confirmed Type Fluticasone/Salmeterol [Advair 2 inh IH BID 02/23/18 02/28/18 History Diskus 100/50] Magnesium 200 mg PO TID 02/23/18 02/28/18 History Zantac 150 mg PO BID 02/23/18 02/28/18 History tiZANidine HCl [Tizanidine HCl] 2 mg PO TID PRN 02/23/18 02/28/18 History Aspirin [Ecotrin Regular Strength] 325 mg PO DAILY 02/28/18 02/28/18 History Cranberry 1,200 mg PO BID 02/28/18 02/28/18 History Ranolazine [Ranexa] 500 mg PO BID 30 Days tab 03/02/18 Rx Vitals: Vital Signs (12 hours) Temp Pulse Resp BP BP BP BP 02/08/21 12:07 98.6 F 67 16 141/64 H 10/02/20 09:17 76 148/67 H 149/70 H 135/61 10/02/20 09:00 98.9 F 65 17 164/65 H 10/02/20 04:30 98.6 F 67 16 118/62 Pulse Ox 10/02/20 12:07 97 10/02/20 09:17 10/02/20 09:00 97 10/02/20 04:30 98 Weight Weight 62 lb 6.4 oz PHYSICAL EXAMINATION: General Appearance: NAD, awake alert Eye: PERRL, anicteric sclera Eye - other findings: Funduscopic exam without papilledema ENT: normocephalic atraumatic, no oropharyngeal lesions, moist mucosa Neck: supple, symmetric, no JVD, no thyromegaly, no lymphadenopathy, no carotid bruit Heart: RRR, no murmur, no gallops, no rubs, normal peripheral pulses Respiratory: CTAB, no wheezes, no rales, no ronchi, normal chest expansion, no tachypnea, normal percussion Gastrointestinal: soft, non-tender, non-distended, normal bowel sounds, no palpable masses, no hepatomegaly, no splenomegaly, no bruit Extremities: no cyanosis, no clubbing, no edema Skin: normal turgor, no lesions, no rashes Neurological: Mental Status: The patient is alert and oriented to person, place and time. Speech is clear. Cranial nerves 2 through 12 intact. Motor: Muscle tone and bulk are normal. Strength 5/5 bilaterally. Sensory intact. Cerebellar: Finger-nose testing intact. Gait deferred due to patient's safety reason. LABORATORY DATA: I reviewed the labs which were essentially unremarkable. IMAGING DATA: Head CT did not reveal any acute intracranial pathology. MRI of the brain is negative for acute intracranial pathology. Laboratory Last Values Creatine Kinase 35 U/L (29-168) 10/01/20 07:44 Troponin I 0.010 ng/mL (< 0.028) 10/01/20 07:44 Urine Color Light-Yellow (Yellow) 10/01/20 09:00 Urine Clarity Clear (Clear) 10/01/20 09:00 Urine pH 6.5 (5.0-9.0) 10/01/20 09:00 Ur Specific [place] 1.010 (1.002-1.036) 10/01/20 09:00 Urine Protein Negative mg/dL (Neg-Trace) 10/01/20 09:00 Urine Glucose (UA) Normal mg/dL (Negative) 10/01/20 09:00 Urine Ketones Negative mg/dL (Negative) 10/01/20 09:00 Urine Blood Negative (Negative) 10/01/20 09:00 Urine Nitrite Negative (Negative) 10/01/20 09:00 Urine Bilirubin Negative (Negative) 10/01/20 09:00 Urine Urobilinogen Normal mg/dL (Less than 2) 10/01/20 09:00 Ur Leukocyte Esterase Negative Mathew/uL (Negative) 10/01/20 09:00 Salicylates Less than 8.0 mg/dL (15.0-30.0) L 10/01/20 07:44 Acetaminophen Less than 6.0 mcg/mL (10.0-30.0) L 10/01/20 07:44 Plasma Alcohol Less than 10 mg/dL (Less than 10) 10/01/20 07:44 ASSESSMENT AND PLAN: (1) Dizziness Code(s): R42 - DIZZINESS AND GIDDINESS Status: Acute (2) Post concussion syndrome Code(s): F07.81 - POSTCONCUSSIONAL SYNDROME Status: Acute (3) GERD (gastroesophageal reflux disease) Code(s): K21.9 - GASTRO-ESOPHAGEAL REFLUX DISEASE WITHOUT ESOPHAGITIS Status: Acute Ms. Castro is a 80-year-old female who presented with severe dizziness, status post fall. MRI of the brain was done, which was negative for acute intracranial pathology. 2D echo did not show ejection fraction of 50% to 55%. No thrombus or PFO. Telemetry did not show any arrhythmias. Strict control of blood pressure and monitor blood pressure and blood glucose. Continue home medications. Continue aspirin for secondary stroke prevention. Continue medical management per primary team. Carotid Dopplers to rule out hemodynamically significant stenosis, PT/OT. Continue medical management per primary team. Thank you for the consult. Plan discussed in detail with the patient and the nursing staff. Job ID: [id number] MTDD
--- NOTE | 2020-10-02 12:44 | PDOC.DS.DS ---
Provider Date of Admission: 10/01/20 09:22 Date of Discharge: 10/02/20 Admitting Provider: Edna Jeffery MD Consultations: Neurology Primary Care Physician: Kishan Price, DO Course Hospital Course: Diagnosis: Dizziness Post concussion syndrome Patient is a 80-year-old female with PMH of mild persistent asthma, HLD, and GERD who was transferred from [facility] with dizziness. Patient reported she had concussion about 3 months ago after she hit her head on the bathtub. About 1 week ago she hit her head in the same spot, and she started having her symptoms 2 days later. MRI of brain showed no acute findings. Echo showed normal EF and no PFO or clotting. Orthostatic vitals were normal. No arythmia on Tele. Carottid doppler was recommended while inpatient by neurology, however patient did not want to stay for the imaging. Neurology is okay with obtaining the doppler outpatient, patient was informed to follow up with her PCP. Patient asymptomatic on day of discharged. Resuscitation Status: 10/01/20 09:29 Resuscitation Status Routine Co-Sign Provider: Resuscitation Status: FULL: Full Resuscitation Lab Results: 10/02/20 05:20 10/02/20 05:20 Abnormal Lab Results - Last 48 hrs 10/01/20 07:44: Salicylates Less than 8.0 L, Acetaminophen Less than 6.0 L 10/02/20 05:20: Chloride 109 H 10/02/20 05:20: RBC 3.86 L, MCH 31.5 H Vitals: Vital Signs (12 hours) Temp Pulse Resp BP BP BP BP 10/02/20 12:07 98.6 F 67 16 141/64 H 10/02/20 09:17 76 148/67 H 149/70 H 135/61 10/02/20 09:00 98.9 F 65 17 164/65 H 10/02/20 04:30 98.6 F 67 16 118/62 Pulse Ox 10/02/20 12:07 97 10/02/20 09:17 10/02/20 09:00 97 10/02/20 04:30 98 Weight Weight 62 lb 6.4 oz Physical Exam: The patient was seen and examined on the day of discharge. General Appearance: NAD, awake alert Eye: PERRL Eye - other findings: No nystagmus ENT: moist mucosa Neck: supple Respiratory: CTAB, no wheezes Cardiovascular: RRR, no murmur Gastrointestinal: soft, non-tender, non-distended, normal bowel sounds Extremities: no edema Skin: normal turgor Neurological: cranial nerve grossly intact, normal sensation to touch, no weakness, no focal deficits PSYCH: normal affect, A&O x 3 Problem (1) Dizziness Code(s): R42 - DIZZINESS AND GIDDINESS Status: Acute (2) Post concussion syndrome Code(s): F07.81 - POSTCONCUSSIONAL SYNDROME Status: Acute (3) GERD (gastroesophageal reflux disease) Code(s): K21.9 - GASTRO-ESOPHAGEAL REFLUX DISEASE WITHOUT ESOPHAGITIS Status: Acute (4) GERD (gastroesophageal reflux disease) Code(s): K21.9 - GASTRO-ESOPHAGEAL REFLUX DISEASE WITHOUT ESOPHAGITIS Status: Chronic Plan Home Medications: Medication Instructions Recorded Confirmed Type Fluticasone/Salmeterol [Advair 2 inh IH BID 02/23/18 10/01/20 History Diskus 100/50] Magnesium 200 mg PO TID 02/23/18 10/01/20 History Amoxicillin 500 mg PO BID 10/01/20 10/01/20 History Allergies: fentanyl Allergy (Verified 10/01/20 17:59) Discharge Instructions:: The neurologist wants you to follow up with your PCP to complete a carotid doppler. Activity:: Activity as Tolerated Nourishment:: Heart Healthy Diet Referrals: Kishan Price DO [Primary Care Provider] - 3 Days (Please call the office and schedule a follow up appointment Patient will need bilateral carotid doppler as early as possible ) Disposition: HOME Quality CORE MEASURES:: N/A
== END 2020-10-02 13:09 | disposition home or self-care (01) ==
LOC: ERS 07:03 → ERHOLD 09:22 → 2NO 17:24
PROVIDERS: ADMIT Internal Medicine; ATTEND Internal Medicine
DX: F07.81 Postconcussional syndrome (principal); K21.9 Gastro-esophageal reflux disease without esophagitis; J45.30 Mild persistent asthma, uncomplicated; E78.5 Hyperlipidemia, unspecified; Z79.2 Long term (current) use of antibiotics; Z79.82 Long term (current) use of aspirin; Z79.899 Other long term (current) drug therapy; Z88.5 Allergy status to narcotic agent; Z90.49 Acquired absence of other specified parts of digestive tract
CPT/HCPCS: 36415; 70551; 71045; 80048; 80306; 80307; 82550; 84484; 85025; 93005; 93306; G0378